=== PATIENT | male | born 1975 | race Caucasian/White ===

== ENCOUNTER 2018-07-19 13:18 | Emergency (ER) | payer OTHER ==
--- NOTE | 2018-07-19 13:39 | ER Report ---
History and Physical Time Seen By MD: 13:33 Hx. of Stated Complaint: Pt. having LLQ pain since yesterday afternoon. Fever 100.8 at home prior to arrival today. 99.8 in triage. HPI/ROS CHIEF COMPLAINT: Abdominal pain HISTORY OF PRESENT ILLNESS: This is a 42-year-old male presents to emergency room with abdominal pain. Patient states that approximately 24 hours ago shortly after eating lunch she developed some left lower quadrant pain progressively getting worse through the night, subjectively had fevers, temperature of 99.8 in the emergency department. No nausea or vomiting. No diarrhea however he does have some loose stools, no blood noted. No history of abdominal surgeries, states he is otherwise healthy. No dysuria, no chest pain or shortness of breath. No rashes. REVIEW OF SYSTEMS: Constitutional: As above. Eyes: No discharge. ENT: No sore throat. Cardiovascular: No chest pain, no palpitations. Respiratory: No cough, no shortness of breath. Gastrointestinal: As above. Genitourinary: No hematuria. Musculoskeletal: No back pain. Skin: No rashes. Neurological: No headache. Allergies: Coded Allergies: No Known Drug Allergies (Unverified , 07/19/18) Home Meds Active Scripts Ciprofloxacin 500 Mg Tab (CIPROFLOXACIN 500 MG TAB) 500 Mg Tablet, 500 MG PO Q12H for 10 Days, #20 TAB 0 Refills Prov:MICHAEL BENNETT 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 Reviewed Nurses Notes: Yes Constitutional Vital Sign - Last 24 Hours 07/19/18 07/19/18 07/19/18 07/19/18 13:18 13:21 13:21 13:23 Temp 99.8 Pulse ??? 108 111 Resp 16 B/P (MAP) 146/108 (121) 146/108 Pulse Ox 93 94 O2 Delivery Room Air 07/19/18 07/19/18 07/19/18 07/19/18 13:28 13:30 13:33 13:38 Pulse 104 105 105 B/P (MAP) 154/104 (121) Pulse Ox 93 92 94 07/19/18 07/19/18 07/19/18 07/19/18 13:43 13:48 13:53 13:58 Pulse 107 96 102 Pulse Ox 93 91 93 91 07/19/18 07/19/18 07/19/18 07/19/18 14:00 14:03 14:08 14:13 Pulse 100 101 ??? B/P (MAP) 177/86 (116) Pulse Ox 93 93 07/19/18 07/19/18 07/19/18 07/19/18 14:18 14:23 14:28 14:31 Pulse ??? 93 92 B/P (MAP) 147/92 (110) Pulse Ox 93 95 07/19/18 07/19/18 07/19/18 07/19/18 14:33 14:38 14:43 14:48 Pulse 97 94 96 94 Pulse Ox 94 94 93 93 07/19/18 07/19/18 07/19/18 07/19/18 14:53 14:58 15:00 15:03 Pulse 88 ? B/P (MAP) ???/??? (1665) Pulse Ox 94 07/19/18 07/19/18 07/19/18 07/19/18 15:08 15:13 15:18 15:23 Pulse ? 07/19/18 07/19/18 07/19/18 07/19/18 15:28 15:30 15:33 15:38 Pulse ? B/P (MAP) ???/??? (1665) 07/19/18 07/19/18 07/19/18 07/19/18 15:43 15:48 15:53 15:56 Pulse ? B/P (MAP) 153/95 (114) 07/19/18 07/19/18 07/19/18 07/19/18 15:58 16:00 16:03 16:08 Pulse 97 91 95 B/P (MAP) 158/142 (147) Pulse Ox 88 90 91 07/19/18 07/19/18 07/19/18 16:13 16:18 17:05 Temp 102.5 Pulse 94 96 Pulse Ox 92 92 Physical Exam General Appearance: The patient is alert, has no immediate need for airway protection and no signs of toxicity. Eyes: Pupils equal and round no pallor or injection. ENT, Mouth: Mucous membranes are moist. Respiratory: There are no retractions, lungs are clear to auscultation. Cardiovascular: Regular rate and rhythm. No murmurs, clicks or rubs. Gastrointestinal: Abdomen is soft tenderness to the left lower quadrant into the periumbilical region, no masses, bowel sounds normal. Neurological: Alert and oriented 4. Moving all extremities. Following. No focal neuro deficits. Skin: Warm and dry, no rashes. Musculoskeletal: Neck is supple non tender. Extremities are nontender, nonswollen and have full range of motion. DIFFERENTIAL DIAGNOSIS: After history and physical exam differential diagnosis was considered for abdominal pain including but not limited to appendicitis, diverticulitis, cholecystitis, gastritis and urinary tract infection. Medical Decision Making Data Points Result Diagram: 07/19/18 1340 07/19/18 1340 Laboratory Hematology Test 07/19/18 13:40 07/19/18 15:04 Red Blood Count 5.26 M/uL (4.00-5.60) Mean Corpuscular Volume 93.9 fL (80.0-96.0) Mean Corpuscular Hemoglobin 31.8 pg (26.0-33.0) Mean Corpuscular Hemoglobin Concent 33.9 g/dL (32.0-36.0) Red Cell Distribution Width 12.9 % (11.5-14.5) Mean Platelet Volume 7.8 fL (7.2-11.1) Neutrophils (%) (Auto) 80.0 % (39.4-72.5) Lymphocytes (%) (Auto) 10.3 % (17.6-49.6) Monocytes (%) (Auto) 9.3 % (4.1-12.4) Eosinophils (%) (Auto) 0.1 % (0.4-6.7) Basophils (%) (Auto) 0.3 % (0.3-1.4) Nucleated RBC Relative Count (auto) 0.0 /100WBC Neutrophils # (Auto) 12.8 K/uL (2.0-7.4) Lymphocytes # (Auto) 1.6 K/uL (1.3-3.6) Monocytes # (Auto) 1.5 K/uL (0.3-1.0) Eosinophils # (Auto) 0.0 K/uL (0.0-0.5) Basophils # (Auto) 0.1 K/uL (0.0-0.1) Nucleated RBC Absolute Count (auto) 0.00 K/uL Sodium Level 137 mmol/L (137-145) Potassium Level 4.0 mmol/L (3.5-5.0) Chloride Level 100 mmol/L (98-107) Carbon Dioxide Level 26 mmol/L (22-30) Blood Urea Nitrogen 11 mg/dl (9-21) Creatinine 0.90 mg/dl (0.66-1.25) Glomerular Filtration Rate Calc > 60.0 Random Glucose 115 mg/dl (75-110) Lactate 1.2 mmol/L (0.7-2.1) Calcium Level 9.5 mg/dl (8.4-10.2) Total Bilirubin 1.3 mg/dl (0.2-1.3) Aspartate Amino Transf (AST/SGOT) 28 U/L (0-35) Alanine Aminotransferase (ALT/SGPT) 44 U/L (0-56) Alkaline Phosphatase 85 U/L (0-126) Total Protein 8.0 g/dl (6.3-8.2) Albumin 4.5 g/dl (3.5-5.0) Urine Color Yellow Urine Clarity Clear Urine pH 6.0 pH (4.8-9.5) Urine Specific [place] >1.060 Urine Protein Negative mg/dL (NEGATIVE) Urine Glucose (UA) Negative mg/dL (NEGATIVE) Urine Ketones Trace mg/dL (NEGATIVE) Urine Blood Negative (NEGATIVE) Urine Nitrite Negative (NEGATIVE) Urine Bilirubin Negative (NEGATIVE) Urine Urobilinogen Negative mg/dL (0.2-1.9) Urine Leukocyte Esterase Negative (NEGATIVE) Urine RBC <1 /HPF (0-2/HPF) Urine WBC <1 /HPF (0-5/HPF) Urine Squamous Epithelial Cells None /LPF (</=FEW) Urine Bacteria Negative /HPF (NONE-FEW) Urine Mucus None /HPF (NONE-FEW) Chemistry Test 07/19/18 13:40 07/19/18 15:04 White Blood Count 15.9 k/uL (4.5-11.0) Red Blood Count 5.26 M/uL (4.00-5.60) Hemoglobin 16.8 g/dL (14.0-18.0) Hematocrit 49.4 % (42.0-52.0) Mean Corpuscular Volume 93.9 fL (80.0-96.0) Mean Corpuscular Hemoglobin 31.8 pg (26.0-33.0) Mean Corpuscular Hemoglobin Concent 33.9 g/dL (32.0-36.0) Red Cell Distribution Width 12.9 % (11.5-14.5) Platelet Count 211 K/uL (150-450) Mean Platelet Volume 7.8 fL (7.2-11.1) Neutrophils (%) (Auto) 80.0 % (39.4-72.5) Lymphocytes (%) (Auto) 10.3 % (17.6-49.6) Monocytes (%) (Auto) 9.3 % (4.1-12.4) Eosinophils (%) (Auto) 0.1 % (0.4-6.7) Basophils (%) (Auto) 0.3 % (0.3-1.4) Nucleated RBC Relative Count (auto) 0.0 /100WBC Neutrophils # (Auto) 12.8 K/uL (2.0-7.4) Lymphocytes # (Auto) 1.6 K/uL (1.3-3.6) Monocytes # (Auto) 1.5 K/uL (0.3-1.0) Eosinophils # (Auto) 0.0 K/uL (0.0-0.5) Basophils # (Auto) 0.1 K/uL (0.0-0.1) Nucleated RBC Absolute Count (auto) 0.00 K/uL Glomerular Filtration Rate Calc > 60.0 Lactate 1.2 mmol/L (0.7-2.1) Calcium Level 9.5 mg/dl (8.4-10.2) Total Bilirubin 1.3 mg/dl (0.2-1.3) Aspartate Amino Transf (AST/SGOT) 28 U/L (0-35) Alanine Aminotransferase (ALT/SGPT) 44 U/L (0-56) Alkaline Phosphatase 85 U/L (0-126) Total Protein 8.0 g/dl (6.3-8.2) Albumin 4.5 g/dl (3.5-5.0) Urine Color Yellow Urine Clarity Clear Urine pH 6.0 pH (4.8-9.5) Urine Specific [place] >1.060 Urine Protein Negative mg/dL (NEGATIVE) Urine Glucose (UA) Negative mg/dL (NEGATIVE) Urine Ketones Trace mg/dL (NEGATIVE) Urine Blood Negative (NEGATIVE) Urine Nitrite Negative (NEGATIVE) Urine Bilirubin Negative (NEGATIVE) Urine Urobilinogen Negative mg/dL (0.2-1.9) Urine Leukocyte Esterase Negative (NEGATIVE) Urine RBC <1 /HPF (0-2/HPF) Urine WBC <1 /HPF (0-5/HPF) Urine Squamous Epithelial Cells None /LPF (</=FEW) Urine Bacteria Negative /HPF (NONE-FEW) Urine Mucus None /HPF (NONE-FEW) Urinalysis Test 07/19/18 15:04 Urine Color Yellow Urine Clarity Clear Urine pH 6.0 pH (4.8-9.5) Urine Specific [place] >1.060 Urine Protein Negative mg/dL (NEGATIVE) Urine Glucose (UA) Negative mg/dL (NEGATIVE) Urine Ketones Trace mg/dL (NEGATIVE) Urine Blood Negative (NEGATIVE) Urine Nitrite Negative (NEGATIVE) Urine Bilirubin Negative (NEGATIVE) Urine Urobilinogen Negative mg/dL (0.2-1.9) Urine Leukocyte Esterase Negative (NEGATIVE) Urine RBC <1 /HPF (0-2/HPF) Urine WBC <1 /HPF (0-5/HPF) Urine Squamous Epithelial Cells None /LPF (</=FEW) Urine Bacteria Negative /HPF (NONE-FEW) Urine Mucus None /HPF (NONE-FEW) EKG/Imaging Imaging PATIENT NAME: Tahir Frey : 1975 MR: [id number] V: [id number] EXAM DATE: ORDERING PHYSICIAN: MICHAEL BENNETT TECHNOLOGIST: Location: [facility] - [place] Patient: Tahir Frey : 1975 Visit/Account:[id number] Date of Sevice: 07/19/2018 ABDOMEN/PELVIS WITH CONTRAST HISTORY: llq pain, eval for divertic TECHNIQUE: Following administration of IV contrast contiguous axial images acquired through the abdomen/pelvis. Coronal and sagittal reformatting also performed.Dose Lowering Technique One of the following dose optimization techniques was utilized in the performance of this exam: Automated exposure control; adjustment of the mA and/or kV according to the patient's size; or use of an iterative reconstruction technique. Specific details can be referenced in the facility's radiology CT exam operational policy. CONTRAST: 75 mL Isovue-370 COMPARISON: None. FINDINGS: Visualized lung bases: Negative. Hepatobiliary: Negative. Spleen: Negative. Adrenals: Negative. Pancreas: Negative. Kidneys ureters or bladder: Negative. Genitalia: Negative. GI: There is extensive wall thickening with surrounding infiltrative changes in the sigmoid colon and pericolonic fat. This is in the location of multiple diverticula and is most likely related to acute diverticulitis. There is no evidence of free perforation or peridiverticular abscess Vessels/spaces/nodes: Negative. Bones/soft tissues: There is a small umbilical hernia containing edematous fat. There are mild spondylotic changes lumbar spine Additional findings: None pertinent. IMPRESSION: There is extensive wall thickening with extensive surrounding inflammatory changes in the sigmoid colon and pericolonic fat. This is the location of numerous diverticula and is most likely related to acute diverticulitis. Follow-up recommended following treatment to exclude less likely etiologies such as colitis or neoplasm. There is no evidence of perforation or peridiverticular abscess There is a small umbilical hernia containing edematous fat . Results were called to MICHAEL BENNETT at 07/19/2018 3:14 PM. Report Dictated By: Freida Dang MD at 07/19/2018 2:47 PM Report E-Signed By: Freida Dang MD at 07/19/2018 3:15 PM WSN:[email or web address] ED Course/Re-evaluation Clinical Indication for ER IV: Hydration, IV Access ED Course The patient was admitted to room. A history and physical obtained. Differential diagnoses were considered. An IV was started. A CBC, CMP, lactate were obtained. A UA was collected. A 1 L normal saline bolus was given. A CT of the abdomen and pelvis showing diverticulitis, no perforation identified, results were reviewed with the patient. I did give the patient one IV dose of Flagyl.CBC showing white count 15.9, neutrophils 80, normal chemistry, negative UA. Prescriptions for Flagyl and Cipro were given to the patient, he will continue taking the antibiotics until complete, follow-up with his primary care provider, return to ER if he has any other concerns. I did instruct the patient not to work until next Tuesday. The patient expressed understanding, was agreeable with this plan of care and discharged home. He does understand that there is a very low threshold for returning to the emergency department for worsening symptoms. The patient's temperature did increase while in the emergency department however he states he is feeling okay, the pain did not change, he was given a gram of Tylenol, I reiterated to have a very low threshold for returning should he have any other concerns at home, patient was agreeable with this plan of care. Decision to Disposition Date: Jul 19, 2018 Decision to Disposition Time: 16:14 Depart Departure Latest Vital Signs Vital Signs Date Time Temp Pulse Resp B/P (MAP) Pulse Ox O2 Delivery O2 Flow Rate FiO2 07/19/18 17:05 102.5 07/19/18 16:18 96 92 07/19/18 16:00 158/142 (147) 07/19/18 13:21 16 Room Air Impression: Primary Impression: Diverticulitis Condition: Improved Disposition: HOME OR SELF-CARE Referrals: FRANKLIN SEYMOUR JOHN A MD New Scripts Ciprofloxacin 500 Mg Tab (CIPROFLOXACIN 500 MG TAB) 500 Mg Tablet 500 MG PO Q12H for 10 Days, #20 TAB 0 Refills Prov: MICHAEL BENNETT [employer] 07/19/18 Metronidazole (METRONIDAZOLE) 500 Mg Tablet 500 MG PO TID for 10 Days, #30 TAB 0 Refills Prov: MICHAEL BENNETT [employer] 07/19/18 Departure Forms: ER Transition Record, Medications Reconciliation, Off Wo rk/School Form, School or Work Release?: Work Number of days to be released: 3 Patient Portal Information Patient Instructions: Clear Liquid Diet (ED), Diverticulitis (ED), Diverticulitis Diet (ED) Additional Instructions: You were given a dose of IV antibiotics, you will start the oral Flagyl (mentronidazole). You will start on Cipro today too. Take Ibuprofen or Tylenol as needed for pain. No work for the rest of the week. Drink plenty of water. Get plenty of rest. Clear liquid diet for the next 24-48 hours. Return to the ED for any other concerns or worsening symptoms. Follow up with your PCP within the next 7-10 days for reevaluation. Follow up with Dr. Shea or Dr. Seymour for future colonscopy. MICHAEL BENNETT [employer] Jul 19, 2018 13:39
[2018-07-19] MEDS ORDERED: NS(*) 0.9% 1000 ML BAG 1,000 ML IV ONE (13:44)
[2018-07-19 13:58] LABS: PLATELET COUNT, AUTOMATED 211 K/uL (150-450)
[2018-07-19] MEDS ORDERED: IOPAMIDOL 76% 100 ML INFUS BTL 100 ML ONE (14:03)
--- NOTE | 2018-07-19 15:20 | RADIOLOGY IMAGING REPORT ---
FACILITY: [facility] PATIENT NAME: Tahir Frey : 1975 MR: [id number] V: [id number] EXAM DATE: ORDERING PHYSICIAN: MICHAEL BENNETT TECHNOLOGIST: Location: [facility] - [place] Patient: Tahir Frey : 1975 Visit/Account:[id number] Date of Sevice: 07/19/2018 ABDOMEN/PELVIS WITH CONTRAST HISTORY: llq pain, eval for divertic TECHNIQUE: Following administration of IV contrast contiguous axial images acquired through the abdom en/pelvis. Coronal and sagittal reformatting also performed.Dose Lowering Technique One of the following dose optimization techniques was utilized in the performance of this exam: Autom ated exposure control; adjustment of the mA and/or kV according to the patient's size; or use of an i terative reconstruction technique. Specific details can be referenced in the facility's radiology C T exam operational policy. CONTRAST: 75 mL Isovue-370 COMPARISON: None. FINDINGS: Visualized lung bases: Negative. Hepatobiliary: Negative. Spleen: Negative. Adrenals: Negative. Pancreas: Negative. Kidneys ureters or bladder: Negative. Genitalia: Negative. GI: There is extensive wall thickening with surrounding infiltrative changes in the sigmoid colon an d pericolonic fat. This is in the location of multiple diverticula and is most likely related to acu te diverticulitis. There is no evidence of free perforation or peridiverticular abscess Vessels/spaces/nodes: Negative. Bones/soft tissues: There is a small umbilical hernia containing edematous fat. There are mild spon dylotic changes lumbar spine Additional findings: None pertinent. IMPRESSION: There is extensive wall thickening with extensive surrounding inflammatory changes in the sigmoid col on and pericolonic fat. This is the location of numerous diverticula and is most likely related to a cute diverticulitis. Follow-up recommended following treatment to exclude less likely etiologies suc h as colitis or neoplasm. There is no evidence of perforation or peridiverticular abscess There is a small umbilical hernia containing edematous fat . Results were called to MICHAEL BENNETT at 07/19/2018 3:14 PM. Report Dictated By: Freida Dang MD at 07/19/2018 2:47 PM Report E-Signed By: Freida Dang MD at 07/19/2018 3:15 PM WSN:[email or web address]
[2018-07-19] MEDS ORDERED: metroNIDAZOLE* 500MG/100ML BAG 100 ML IVPB ONE (15:30)
[2018-07-19] MEDS ORDERED: METR500T15 PO (15:43)
[2018-07-19] MEDS ORDERED: CIPR-214 PO (15:43)
[2018-07-19 16:00] VITALS: BP 158/142
[2018-07-19] MEDS ORDERED: ACETAMINOPHEN 500 MG TAB PO ONE (17:00)
== END 2018-07-19 17:15 | disposition home or self-care (01) ==
LOC: ER 13:28
DX: K57.92 Diverticulitis of intestine, part unspecified, without perforation or abscess without bleeding (principal)
CPT/HCPCS: 74177; 81001; 83605; 85025; 96361; 96365; 99284; J3490; J7030; Q9967; 82040; 82247; 82310; 82374; 82435; 82565; 82947; 84075; 84132; 84155; 84295; 84450; 84460; 84520